=== PATIENT | female | born 2000 | race Caucasian/White ===

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

== ENCOUNTER 2020-11-14 22:34 | Emergency (ER) | payer OTHER ==
[2020-11-15] MEDS ORDERED: ACETAMINOPHEN ORAL SUSP 160 MG/5 ML CUP PO ONE (00:18)
[2020-11-15] MEDS ORDERED: IBUPROFEN ORAL SUSP 100 MG/5 ML CUP PO ONE (00:18)
[2020-11-15 00:24] LABS: Appearance,Urine Cloudy (Clear); Bacteria,Urine Rare /hpf; Bilirubin,Urine Negative (Negative); Blood,Urine Negative (Negative); Color,Urine Light Yellow; Glucose,Urine (UA) Negative (Negative); Ketones,Urine Negative (Negative); Leukocyte Esterase,Urine Moderate (Negative); Nitrite,Urine Negative (Negative); Protein,Urine Negative (Negative); RBC,Urine 1 /hpf (0-5); Specific Gravity,Urine 1.004 (1.001-1.035); Squamous Epithelial Cell,Urine 2 /hpf (0-4); Urobilinogen,Urine <2.0 mg/dL (<2.0); WBC,Urine 14 /hpf (0-5)
--- NOTE | 2020-11-15 00:29 | ED ---
Abdominal Pain HPI - General Chief Complaint: Abdominal Pain Stated Complaint: Abdominal pain Time Seen by Provider: 11/14/20 23:59 Source: patient, RN notes reviewed, old records reviewed Mode of arrival: ambulatory Limitations: no limitations - History of Present Illness Initial Comments: This is a 20-year-old female to the ER for evaluation patient presents today for evaluation of a right-sided abdominal pain right area rib pain intermittent pain for a few days now some radiation to her groin. No fevers no nausea vomiting no diarrhea. No prior history of similar event patient has no medical history takes no medication MD Complaint: abdominal pain, flank pain (Right-sided), other (Pain underneath right rib with intermittent pain throughout right flank) -: days(s), week(s) Location: RLQ, R flank Radiation: R flank Migration to: suprapubic Severity: mild Severity scale (1-10): 2 Quality: cramping, aching Consistency: intermittent Improves With: nothing Worsens With: nothing Associated Symptoms: denies other symptoms Treatments Prior to Arrival: other (none) - Related Data Home Medications Medication Instructions Recorded Confirmed Dicyclomine [Bentyl] 10 mg PO TID PRN 08/15/19 08/16/19 Medroxyprogesterone Acetate 150 mg IM Q90D 08/15/19 08/16/19 [Depo-Provera] Omeprazole [PriLOSEC] 20 mg PO AC-BRKFST 08/15/19 08/15/19 Sertraline [Zoloft] 50 mg PO HS 08/15/19 08/16/19 Previous Rx's Medication Instructions Recorded Nitrofurantoin Monohyd/M-Cryst 100 mg PO Q12HR #14 cap 11/15/20 [Macrobid] Allergies Allergy/AdvReac Type Severity Reaction Status Date / Time No Known Allergies Allergy Verified 11/14/20 23:03 Review of Systems ROS Statement: Those systems with pertinent positive or pertinent negative responses have been documented in the HPI. ROS Other: All systems not noted in ROS Statement are negative. Past Medical History Past Medical History: No Reported History Additional Past Medical History / Comment(s): hernia History of Any Multi-Drug Resistant Organisms: None Reported Past Surgical History: No Surgical Hx Reported Past Psychological History: Anxiety, Depression Smoking Status: Vaper Past Alcohol Use History: None Reported Past Drug Use History: None Reported General Exam Limitations: no limitations General appearance: alert, in no apparent distress Head exam: Present: atraumatic, normocephalic, normal inspection Eye exam: Present: normal appearance, PERRL, EOMI. Absent: scleral icterus, conjunctival injection, periorbital swelling ENT exam: Present: normal exam, mucous membranes moist Neck exam: Present: normal inspection. Absent: tenderness, meningismus, lymphadenopathy Respiratory exam: Present: normal lung sounds bilaterally. Absent: respiratory distress, wheezes, rales, rhonchi, stridor Cardiovascular Exam: Present: regular rate, normal rhythm, normal heart sounds. Absent: systolic murmur, diastolic murmur, rubs, gallop, clicks GI/Abdominal exam: Present: soft, tenderness (areas of generalized abdominal tenderness), normal bowel sounds, other (Right-sided flank pain no CVA tenderness). Absent: distended, guarding, rebound, rigid Extremities exam: Present: normal inspection, full ROM, normal capillary refill. Absent: tenderness, pedal edema, joint swelling, calf tenderness Back exam: Present: normal inspection Neurological exam: Present: alert, oriented X3, CN II-XII intact Psychiatric exam: Present: normal affect, normal mood Skin exam: Present: warm, dry, intact, normal color. Absent: rash Course Vital Signs 11/14/20 11/15/20 23:04 00:42 Temperature 98.8 F 98.2 F Pulse Rate 99 85 Respiratory 16 16 Rate Blood Pressure 125/88 107/68 O2 Sat by Pulse 98 99 Oximetry - Reevaluation(s) Reevaluation #1: 11/15/20 01:59 Medical records reviewed Reevaluation #2: 11/15/20 01:59 Symptoms are improved Medical Decision Making - Medical Decision Making 20 female to the ER for evaluation of right-sided flank pain occasionally abdominal pain. Patient does have ovarian cysts likely and computed tomography scan will admit, pain is not consistent with torsion, CT abdomen and pelvis is a positive for a kidney stone. Patient can be discharged home for oral antibiotics possibly pyelonephritis with UTI - Lab Data Lab Results 11/15/20 11/15/20 Range/Units 00:04 00:04 Urine Color Light Yellow Urine Appearance Cloudy H (Clear) Urine pH 7.0 (5.0-8.0) Ur Specific [place] 1.004 (1.001-1.035) Urine Protein Negative (Negative) Urine Glucose (UA) Negative (Negative) Urine Ketones Negative (Negative) Urine Blood Negative (Negative) Urine Nitrite Negative (Negative) Urine Bilirubin Negative (Negative) Urine Urobilinogen <2.0 (<2.0) mg/dL Ur Leukocyte Esterase Moderate H (Negative) Urine RBC 1 (0-5) /hpf Urine WBC 14 H (0-5) /hpf Ur Squamous Epith Cells 2 (0-4) /hpf Urine Bacteria Rare H (None) /hpf Urine HCG, Qual Not Detected (Not Detectd) - Radiology Data Radiology results: report reviewed (CT head and pelvis does show likely ovarian cyst), image reviewed Disposition Clinical Impression: Abdominal pain, UTI (urinary tract infection), Ovarian cyst Disposition: HOME SELF-CARE Condition: Good Instructions (If sedation given, give patient instructions): Abdominal Pain (ED), Urinary Tract Infection in Women (ED) Prescriptions: Nitrofurantoin Monohyd/M-Cryst [Macrobid] 100 mg PO Q12HR #14 cap Is patient prescribed a controlled substance at d/c from ED?: No Referrals: None,Stated [Primary Care Provider] - 1-2 days
[2020-11-15 00:43] VITALS: PULSE 85
--- NOTE | 2020-11-15 01:04 | CT ---
EXAMINATION TYPE: CT abdomen pelvis wo con DATE OF EXAM: 11/15/2020 COMPARISON: None HISTORY: right side abd pain x1week CT DLP: mGycm Automated exposure control for dose reduction was used. Images obtained from the diaphragm to the floor the pelvis without contrast. Lung bases are clear. There is no pleural effusion. Heart size is normal. There is no pericardial eff usion. Liver spleen stomach pancreas gallbladder appear normal. Gallbladder is somewhat contracted. There is no adrenal mass. Kidneys show normal size and contour. There is no hydronephrosis. Ureters a re not dilated. There is no retroperitoneal adenopathy. Bladder distends smoothly. There is no inguin al hernia. There is no free fluid in the pelvis. There is no evidence of pelvic mass. Appendix is medial and posterior and appears normal. Uterus is anteverted. There is probably a 2.7 cm cyst on the right ovary. Exam limited with lack of c ontrast. Lumbar vertebra have normal alignment. Disc spaces are normal. Posterior elements are intact. Bony pe lvis is intact. Hip joints are intact. IMPRESSION: There is probably a right ovarian cyst. Normal appendix.
[2020-11-15] MEDS ORDERED: NITROFURANTOIN MONOHYD/M-CRYST 100 MG CAP PO STA (01:40)
[2020-11-15 02:42] VITALS: BP 109/70; RESP 14; TEMP 99.2
== END 2020-11-15 02:40 | disposition home or self-care (01) ==
LOC: EC 22:34
DX: N39.0 Urinary tract infection, site not specified (principal); N83.209 Unspecified ovarian cyst, unspecified side; F41.9 Anxiety disorder, unspecified; F32.9 Major depressive disorder, single episode, unspecified; Z79.3 Long term (current) use of hormonal contraceptives; F17.290 Nicotine dependence, other tobacco product, uncomplicated
CPT/HCPCS: 74176; 81001; 81025; 87086; 99284

== ENCOUNTER 2021-05-03 18:45 | Emergency (ER) | payer OTHER ==
[2021-05-03 18:55] VITALS: TEMP 98.5
[2021-05-03] MEDS ORDERED: SODIUM CHLORIDE 0.9% 500 ML 500 ML IV STA (19:08)
--- NOTE | 2021-05-03 19:19 | ED ---
General Adult HPI - General Chief complaint: Vaginal Bleeding Stated complaint: abd pain/female Time Seen by Provider: 05/03/21 18:57 Source: patient Mode of arrival: ambulatory Limitations: no limitations - History of Present Illness Initial comments: 20 year-old female patient presents to the emergency department for evaluation of pelvic pain and vaginal bleeding. Patient states she has been having pain from "ovarian cysts" for the last several days. States that today she started to having spotting and had an intense sharp pain to the right pelvic region. States pain radiated to her back. States the bleeding is dark brown to red and very mild. Denies soaking through a tampon or pad. States she has not had a period in 1.5 years, was initially on Depo Provera injection and now has Nexplanon implant since June. She did have two ovarian cysts diagnosed on ultrasound in October. She denies any fever or chills. Denies any hematuria, dysuria, urinary frequency, urinary urgency. Denies ever being . Patient denies any recent rash, cough, shortness of breath, chest pain, nausea, vomiting, diarrhea, constipation, numbness, tingling, dizziness, weakness, headache, visual changes, or any other complaints. - Related Data Home Medications Medication Instructions Recorded Confirmed Dicyclomine [Bentyl] 10 mg PO TID PRN 08/15/19 08/16/19 Medroxyprogesterone Acetate 150 mg IM Q90D 08/15/19 08/16/19 [Depo-Provera] Omeprazole [PriLOSEC] 20 mg PO AC-BRKFST 08/15/19 08/15/19 Sertraline [Zoloft] 50 mg PO HS 08/15/19 08/16/19 Previous Rx's Medication Instructions Recorded Acetaminophen Oral Susp [Tylenol] 750 mg PO Q4-6H #240 ml 11/15/20 Ibuprofen [Children's Motrin Susp] 500 mg PO Q6HR PRN #240 ml 11/15/20 Nitrofurantoin Monohyd/M-Cryst 100 mg PO Q12HR #14 cap 11/15/20 [Macrobid] Allergies Allergy/AdvReac Type Severity Reaction Status Date / Time No Known Allergies Allergy Verified 05/03/21 18:56 Review of Systems ROS Statement: Those systems with pertinent positive or pertinent negative responses have been documented in the HPI. ROS Other: All systems not noted in ROS Statement are negative. Past Medical History Past Medical History: No Reported History Additional Past Medical History / Comment(s): hernia History of Any Multi-Drug Resistant Organisms: None Reported Past Surgical History: No Surgical Hx Reported Past Psychological History: Anxiety, Depression Smoking Status: Vaper Past Alcohol Use History: None Reported Past Drug Use History: None Reported General Exam Limitations: no limitations General appearance: alert, in no apparent distress, other (This is a well- developed, well-nourished adult female in no acute distress.) ENT exam: Present: normal exam, normal oropharynx, mucous membranes moist Respiratory exam: Present: normal lung sounds bilaterally. Absent: respiratory distress, wheezes, rales, rhonchi, stridor Cardiovascular Exam: Present: regular rate, normal rhythm, normal heart sounds. Absent: systolic murmur, diastolic murmur, rubs, gallop, clicks GI/Abdominal exam: Present: soft, tenderness (Right lower quadrant), normal bowel sounds. Absent: distended, guarding, rebound, rigid Neurological exam: Present: alert, oriented X3, CN II-XII intact Psychiatric exam: Present: normal affect, normal mood Skin exam: Present: warm, dry, intact, normal color. Absent: rash Course Vital Signs 05/03/21 18:53 Temperature 98.5 F Pulse Rate 105 H Respiratory 20 Rate Blood Pressure 135/90 O2 Sat by Pulse 98 Oximetry Medical Decision Making - Medical Decision Making 20-year-old female patient presented for evaluation of pelvic pain and spotting. She does currently have Nexplanon implant. Physical examination did reveal lower abdominal tenderness especially over the right lower quadrant. She is afebrile, vital signs. Labs reviewed and are unremarkable. She had 15 white blood cells in the urine but no symptoms we did send this for culture. She is given pain medication here. Instructed to follow-up with her customer success specialist for further evaluation as soon as possible. Return parameters were discussed in detail. She verbalizes understanding and agrees with this plan. My attending is Dr. Gilliam. - Lab Data Result diagrams: 05/03/21 19:30 05/03/21 19:30 Lab Results 05/03/21 05/03/21 05/03/21 Range/Units 19:30 19:30 19:30 WBC 6.9 (4.0-11.0) k/uL RBC 4.58 (3.80-5.40) m/uL Hgb 14.5 (11.4-16.0) gm/dL Hct 43.1 (34.0-46.0) % MCV 94.1 (80.0-100.0) fL MCH 31.6 (25.0-35.0) pg MCHC 33.6 (31.0-37.0) g/dL RDW 13.2 (11.5-15.5) % Plt Count 342 (150-450) k/uL MPV 7.3 Neutrophils % 59 % Lymphocytes % 30 % Monocytes % 7 % Eosinophils % 0 % Basophils % 1 % Neutrophils # 4.1 (1.3-7.7) k/uL Lymphocytes # 2.1 (1.0-4.8) k/uL Monocytes # 0.5 (0-1.0) k/uL Eosinophils # 0.0 (0-0.7) k/uL Basophils # 0.0 (0-0.2) k/uL Sodium 139 (137-145) mmol/L Potassium 3.9 (3.5-5.1) mmol/L Chloride 105 (98-107) mmol/L Carbon Dioxide 24 (22-30) mmol/L Anion Gap 10 mmol/L BUN 9 (7-17) mg/dL Creatinine 0.66 (0.52-1.04) mg/dL Est GFR (CKD-EPI)AfAm >90 (>60 ml/min/1.73 sqM) Est GFR (CKD-EPI)NonAf >90 (>60 ml/min/1.73 sqM) Glucose 87 (74-99) mg/dL Plasma Lactic Acid Jv (0.7-2.0) mmol/L Calcium 9.9 (8.4-10.2) mg/dL Total Bilirubin 1.0 (0.2-1.3) mg/dL AST 32 (14-36) U/L ALT 30 (4-34) U/L Alkaline Phosphatase 77 (38-126) U/L Total Protein 8.1 (6.3-8.2) g/dL Albumin 4.5 (3.5-5.0) g/dL Lipase 44 (23-300) U/L Urine Color Light Yellow Urine Appearance Cloudy H (Clear) Urine pH 7.5 (5.0-8.0) Ur Specific [place] 1.013 (1.001-1.035) Urine Protein Negative (Negative) Urine Glucose (UA) Negative (Negative) Urine Ketones Negative (Negative) Urine Blood Moderate H (Negative) Urine Nitrite Negative (Negative) Urine Bilirubin Negative (Negative) Urine Urobilinogen <2.0 (<2.0) mg/dL Ur Leukocyte Esterase Moderate H (Negative) Urine RBC 1 (0-5) /hpf Urine WBC 15 H (0-5) /hpf Ur Squamous Epith Cells 2 (0-4) /hpf Urine Bacteria Rare H (None) /hpf Urine HCG, Qual (Not Detectd) 05/03/21 05/03/21 Range/Units 19:30 19:30 WBC (4.0-11.0) k/uL RBC (3.80-5.40) m/uL Hgb (11.4-16.0) gm/dL Hct (34.0-46.0) % MCV (80.0-100.0) fL MCH (25.0-35.0) pg MCHC (31.0-37.0) g/dL RDW (11.5-15.5) % Plt Count (150-450) k/uL MPV Neutrophils % % Lymphocytes % % Monocytes % % Eosinophils % % Basophils % % Neutrophils # (1.3-7.7) k/uL Lymphocytes # (1.0-4.8) k/uL Monocytes # (0-1.0) k/uL Eosinophils # (0-0.7) k/uL Basophils # (0-0.2) k/uL Sodium (137-145) mmol/L Potassium (3.5-5.1) mmol/L Chloride (98-107) mmol/L Carbon Dioxide (22-30) mmol/L Anion Gap mmol/L BUN (7-17) mg/dL Creatinine (0.52-1.04) mg/dL Est GFR (CKD-EPI)AfAm (>60 ml/min/1.73 sqM) Est GFR (CKD-EPI)NonAf (>60 ml/min/1.73 sqM) Glucose (74-99) mg/dL Plasma Lactic Acid Jv 1.2 (0.7-2.0) mmol/L Calcium (8.4-10.2) mg/dL Total Bilirubin (0.2-1.3) mg/dL AST (14-36) U/L ALT (4-34) U/L Alkaline Phosphatase (38-126) U/L Total Protein (6.3-8.2) g/dL Albumin (3.5-5.0) g/dL Lipase (23-300) U/L Urine Color Urine Appearance (Clear) Urine pH (5.0-8.0) Ur Specific [place] (1.001-1.035) Urine Protein (Negative) Urine Glucose (UA) (Negative) Urine Ketones (Negative) Urine Blood (Negative) Urine Nitrite (Negative) Urine Bilirubin (Negative) Urine Urobilinogen (<2.0) mg/dL Ur Leukocyte Esterase (Negative) Urine RBC (0-5) /hpf Urine WBC (0-5) /hpf Ur Squamous Epith Cells (0-4) /hpf Urine Bacteria (None) /hpf Urine HCG, Qual Not Detected (Not Detectd) - Radiology Data Radiology results: report reviewed, image reviewed Transvaginal ultrasound was obtained. Report was reviewed in its entirety. Impression by Dr. Rodriguez shows no evidence for acute pelvic process. Appropriate arterial and venous flow to the ovaries. Disposition Clinical Impression: Vaginal bleeding, Pelvic pain Disposition: HOME SELF-CARE Condition: Good Instructions (If sedation given, give patient instructions): Pelvic Pain in Women (ED) Additional Instructions: Follow-up with your customer success specialist for further evaluation. Follow-up through primary care physician for recheck in 1-2 days. Return for any new, worsening, or concerning symptoms. Is patient prescribed a controlled substance at d/c from ED?: No Referrals: Abhijeet Mcclendon III, MD [Primary Care Provider] - 1-2 days Time of Disposition: 21:28
[2021-05-03 20:00] LABS: Appearance,Urine Cloudy (Clear); Bacteria,Urine Rare /hpf; Bilirubin,Urine Negative (Negative); Blood,Urine Moderate (Negative); Color,Urine Light Yellow; Glucose,Urine (UA) Negative (Negative); Ketones,Urine Negative (Negative); Leukocyte Esterase,Urine Moderate (Negative); Nitrite,Urine Negative (Negative); PH, Urine 7.5 (5.0-8.0); Protein,Urine Negative (Negative); RBC,Urine 1 /hpf (0-5); Specific Gravity,Urine 1.013 (1.001-1.035); Squamous Epithelial Cell,Urine 2 /hpf (0-4); Urobilinogen,Urine <2.0 mg/dL (<2.0); WBC,Urine 15 /hpf (0-5)
[2021-05-03 20:01] LABS: ALT 30 U/L (4-34); AST 32 U/L (14-36); African American GFR (CKD) >90 (>60 ml/min/1.73 sqM); Albumin 4.5 g/dL (3.5-5.0); Alkaline Phosphatase 77 U/L (38-126); Anion Gap 10 mmol/L; Blood Urea Nitrogen 9 mg/dL (7-17); Calcium 9.9 mg/dL (8.4-10.2); Carbon Dioxide 24 mmol/L (22-30); Chloride 105 mmol/L (98-107); Glucose 87 mg/dL (74-99); Lipase 44 U/L (23-300); Non-African American GFR(CKD) >90 (>60 ml/min/1.73 sqM); Sodium 139 mmol/L (137-145); Total Protein 8.1 g/dL (6.3-8.2)
[2021-05-03 20:16] LABS: Potassium 3.9 mmol/L (3.5-5.1)
--- NOTE | 2021-05-03 20:47 | US ---
EXAMINATION TYPE: US transvaginal DATE OF EXAM: 05/03/2021 COMPARISON: CT 2020, US 2019 CLINICAL HISTORY: Pelvic pain; spotting; nexplanon. Intermittent pelvic and back pain x couple months , 0, abnormal cycles prior to control, patient has nexplanon TECHNIQUE: Transvaginal ER exam Date of LMP: 1 year ago EXAM MEASUREMENTS: Uterus: 6.5 x 2.6 x 4.5 cm Endometrial Stripe: 0.3 cm Right Ovary: 3.6 x 1.7 x 2.1 cm Left Ovary: 2.7 x 2.1 x 1.8 cm 1. Uterus: anteverted 2. Endometrium: wnl 3. Right Ovary: multiple follicles 4. Left Ovary: multiple follicles Spectral, color and waveform doppler imaging shows good arterial and venous flow within the ovaries ; there is no evidence for ovarian torsion. 5. Bilateral Adnexa: wnl 6. Posterior cul-de-sac: small amount of free fluid IMPRESSION: No evidence for acute pelvic process of appropriate with Arterial and venous flow to the ovaries.
[2021-05-03 21:02] LABS: Basophils % (A) 1 %; Eosinophils % (A) 0 %; HCT 43.1 % (34.0-46.0); HGB 14.5 gm/dL (11.4-16.0); Lymphocytes # (A) 2.1 k/uL (1.0-4.8); Lymphocytes % (A) 30 %; MCH 31.6 pg (25.0-35.0); MCHC 33.6 g/dL (31.0-37.0); MCV 94.1 fL (80.0-100.0); Mean Platelet Volume 7.3; Monocytes # (A) 0.5 k/uL (0-1.0); Monocytes % (A) 7 %; Neutrophils # (A) 4.1 k/uL (1.3-7.7); Neutrophils % (A) 59 %; Platelet Count 342 k/uL (150-450); RBC 4.58 m/uL (3.80-5.40); RDW 13.2 % (11.5-15.5); WBC 6.9 k/uL (4.0-11.0)
[2021-05-03] MEDS ORDERED: KETOROLAC 15 MG/ML 1 ML VIAL IVP STA (21:26)
[2021-05-03] MEDS ORDERED: IBUPROFEN ORAL SUSP 100 MG/5 ML CUP PO ONE (21:26)
[2021-05-03 21:37] VITALS: BP 127/74; PULSE 94; RESP 16
== END 2021-05-03 21:38 | disposition home or self-care (01) ==
LOC: EC 18:45
DX: N93.9 Abnormal uterine and vaginal bleeding, unspecified (principal); R10.2 Pelvic and perineal pain; F32.A Depression, unspecified; F41.9 Anxiety disorder, unspecified; F17.290 Nicotine dependence, other tobacco product, uncomplicated; Z79.1 Long term (current) use of non-steroidal anti-inflammatories (NSAID); Z79.899 Other long term (current) drug therapy
CPT/HCPCS: 36415; 80053; 83605; 83690; 85025; 81001; 81025; 87086; 93975; 76830; 99284; 96374; J1885

== ENCOUNTER 2021-06-18 06:20 | Day surgery (SDC) | payer OTHER ==
[2021-06-13 15:34] VITALS: BMI 18.8
--- NOTE | 2021-06-17 19:46 | P.HPOB ---
History of Present Illness H&P Date: 06/17/21 Chief Complaint: Pelvic pain This is a 20 y.o. female, 0, who presents for laparoscopy, possible drainage of ovarian cysts, possible lysis of adhesions, possible ablation of endometriosis, and possible laparotomy due to pelvic pain. She complains of a 7 month history of gradually increasing right lower quadrant pain that is sharp, frequent, intermittent, with variable intensity. Each episode lasts about 10 minutes, but the longest she has gone without the pain is 3 days. She states the pain is in her right mid-abdomen and is associated with nausea, anorexia and occasional vomiting. Her symptoms are somewhat relieved with heat and laying down. She had a pelvic ultrasound on 05/03/2021 that showed uterus measuring 6.5 x 2.6 x 4.5 cm with endometrium 0.3 cm. There were multiple small simple cysts on both ovaries. She had a CT scan in 10/2020 that showed a normal appendix and a probable right ovarian cyst measuring 2.7 cm. OB Hx: G0. Qc Tech Hx: Sexually active with partner of 2 years. No history of STDs. Uses Nexplanon for control-placed 07/23/2020. History of irregular, painful period prior to BCPs. Was on Depo-Provera for over a year prior to Nexplanon. Currently not having menses on Nexplanon. Social Hx: Single. 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 Review of Systems Constitutional: Denies chills, Denies fever Eyes: denies blurred vision, denies pain Ears, nose, mouth and throat: Denies headache, Denies sore throat Cardiovascular: Denies chest pain, Denies shortness of breath Respiratory: Denies cough Gastrointestinal: Reports abdominal pain (RLQ), Reports nausea, Reports vomiting (occasional), Denies diarrhea Genitourinary: Reports pelvic pain Menstruation: Reports amenorrhea on BC Musculoskeletal: Denies myalgias Integumentary: Denies pruritus, Denies rash Neurological: Denies numbness, Denies weakness Psychiatric: Denies anxiety, Denies depression Endocrine: Denies fatigue, Denies weight change Past Medical History Additional Past Medical History / Comment(s): INCREASING PELVIC PAIN WITH BACK PAIN AND N/V OVER PAST 7 MONTHS. SMALL HIATAL HERNIA History of Any Multi-Drug Resistant Organisms: None Reported Past Surgical History: No Surgical Hx Reported Additional Past Surgical History / Comment(s): EGD Past Anesthesia/Blood Transfusion Reactions: No Reported Reaction Past Psychological History: No Psychological Hx Reported Smoking Status: Vaper Past Alcohol Use History: None Reported Past Drug Use History: None Reported - Past Family History Mother Family Medical History: No Reported History Father Family Medical History: Cancer (Skin), Hypertension Medications and Allergies Home Medications Medication Instructions Recorded Confirmed Type Etonogestrel [Nexplanon] 1 implant SQ [id number] 06/13/21 06/13/21 History Ibuprofen [Advil] 200 mg PO Q8HR PRN 06/17/21 06/17/21 History Allergies Allergy/AdvReac Type Severity Reaction Status Date / Time No Known Allergies Allergy Verified 06/13/21 15:24 Exam Osteopathic Statement: *. No significant issues noted on an osteopathic structural exam other than those noted in the History and Physical/Consult. HEENT: within normal limits Heart: regular rate and rhythm Lungs: clear to auscultation bilaterally Abdomen: soft, mild tenderness in right mid-lower quadrant, no guarding or rebound, no masses Pelvic: uterus, small, anteverted, non-tender, no adnexal masses or tenderness Extremities: negative Gisella's Assessment and Plan (1) Pelvic pain Current Visit: No Status: Acute Code(s): R10.2 - PELVIC AND PERINEAL PAIN SNOMED Code(s): 93251455 Plan: Proceed with diagnostic laparoscopy, possible drainage of ovarian cyst, possible lysis of adhesions, possible ablation of endometriosis, possible laparotomy. I have discussed the risks, benefits, and alternative therapies for the above- mentioned procedure and for both sedation/anesthesia as well as necessary blood products administration, if indicated, as they pertain to this patient. The patient has indicated her understanding and acceptance of the risks and procedures discussed.
[~2021-06-18 06:20] MED LIST changes: +DEXAMETHASONE SOD PHOSPHATE 4 MG/ML 1 ML VIAL IV ONE; -LACTATED RINGERS 1,000 ML IV ONE; +LIDOCAINE 1% (10MG/ML) FOR IV START INTRADERMA PRN; +ONDANSETRON 4 MG/2 ML VIAL IVP ONE; -PROPOFOL 10 MG/ML 20 ML VIAL IV ONE; +Pre Op ABX Message 1 EACH MISC MISCELLANE ONE
[2021-06-18] MEDS ORDERED: HYDROmorphone 0.5 MG/0.5 ML SYRINGE IVP PRN (07:00)
[2021-06-18] MEDS ORDERED: MIDAZOLAM 2 MG/2 ML VIAL ONE (07:23)
[2021-06-18] MEDS ORDERED: PHENYLEPHRINE-0.9% NACL SYG 1,000 MCG/10 ML SYRINGE ONE (07:23)
[2021-06-18] MEDS ORDERED: LIDOCAINE 1% INJ 10MG/ML (20 ML MDV) ONE (07:23)
[2021-06-18] MEDS ORDERED: NEOSTIGMINE 1 MG/ML 10 ML VIAL ONE (07:23)
[2021-06-18] MEDS ORDERED: GLYCOPYRROLATE 0.2 MG/ML 2 ML VIAL ONE (07:23)
[2021-06-18] MEDS ORDERED: ROCURONIUM 10 MG/ML (5 ML VIAL) IV ONE (07:23)
[2021-06-18] MEDS ORDERED: PROPOFOL 10 MG/ML 20 ML VIAL IV ONE (07:23)
[2021-06-18] MEDS ORDERED: fentaNYL (PF) 50 MCG/ML 2 ML AMP ONE (07:23)
[2021-06-18] MEDS ORDERED: BUPIVACAINE (PF) 0.25% 30 ML VIAL SQ ONE ×2 (07:59→08:13)
--- NOTE | 2021-06-18 08:18 | P.OP ---
Date of Procedure: 06/18/21 Preoperative Diagnosis: Pelvic pain Postoperative Diagnosis: Same plus normal pelvis Procedure(s) Performed: Diagnostic laparoscopy Anesthesia: JUANA Surgeon: Tania Torres Estimated Blood Loss (ml): 5 Pathology: none sent Condition: stable Disposition: same day Indications for Procedure: This is a 20 y.o. female, 0, who presents for laparoscopy, possible drainage of ovarian cysts, possible lysis of adhesions, possible ablation of endometriosis, and possible laparotomy due to pelvic pain. She complains of a 7 month history of gradually increasing right lower quadrant pain that is sharp, frequent, intermittent, with variable intensity. Each episode lasts about 10 m inutes, but the longest she has gone without the pain is 3 days. She states the pain is in her right mid-abdomen and is associated with nausea, anorexia and occasional vomiting. Her symptoms are somewhat relieved with heat and laying down. She had a pelvic ultrasound on 05/03/2021 that showed uterus measuring 6.5 x 2.6 x 4.5 cm with endometrium 0.3 cm. There were multiple small simple cysts on both ovaries. She had a CT scan in 10/2020 that showed a normal appendix and a probable right ovarian cyst measuring 2.7 cm. Operative Findings: Uterus is anteverted with no adnexal masses palpated. Upon laparoscopy, normal tubes and ovaries are noted bilaterally. Normal contour to the uterus is noted. Appendix is visualized and appears normal. No adhesions were noted. No evidence of endometriosis was noted. Gallbladder appears normal. Description of Procedure: The patient is taken to the operating room she is placed in the dorsal lithotomy position. She is prepped and draped in the normal sterile fashion. Her bladder is drained with a catheter. Examination is performed under anesthesia. Uterus is found to be anteverted, small, with no adnexal masses palpated. Next a bivalve speculum was placed in the patient's vagina. The anterior lip of this cervix is grasped with a single-tooth tenaculum. Next the cervix is gently dilated with Perez dilators until a sound could be placed. Uterus is sounded to 8 cm. The kroner uterine manipulator is then inserted through the cervix and the balloon is inflated. Single-tooth tenaculum is removed speculum was removed and gloves are changed. Attention is turned to the abdomen. A small stab incision is made in the infraumbilical fold. A 5 mm disposable bladeless trochars inserted into the peritoneal cavity under direct visualization. Once inside, pneumoperitoneum was achieved with CO2 gas. Next a small stab incision is made suprapubically and a 5 mm disposable bladeless trocar is inserted under direct visualization. A probe was then inserted and pelvic contents were inspected. The above noted findings are made and pictures are taken. Next the inferior trocar is removed under direct visualization. No bleeding is noted. The pneumoperitoneum is released. The upper trocar is removed. The skin incisions are then closed with 4-0 Vicryl suture in a subcuticular fashion. Interrupted stitches are placed on both incision sites for hemostasis. Next incision sites are injected with quarter percent Marcaine. Approximately 6 mL are used. Next the kroner uterine manipulator is deflated and removed. Elective bleeding is noted. All sponge and needle counts are correct. The patient is then taken to recovery room in stable condition.
[2021-06-18 08:37] VITALS: TEMP 97.6
[2021-06-18] MEDS ORDERED: LACTATED RINGERS 1,000 ML IV ONE ×2 (08:55)
[2021-06-18 09:49] VITALS: RESP 18
[2021-06-18 09:54] VITALS: BP 108/70; PULSE 67
== END 2021-06-18 10:23 | disposition home or self-care (01) ==
LOC: OR 06:20
PROVIDERS: ATTEND Obstetrics & Gynecology
DX: R10.2 Pelvic and perineal pain (principal); N83.292 Other ovarian cyst, left side; N83.291 Other ovarian cyst, right side; F17.290 Nicotine dependence, other tobacco product, uncomplicated; K44.9 Diaphragmatic hernia without obstruction or gangrene; Z79.3 Long term (current) use of hormonal contraceptives; Z82.49 Family history of ischemic heart disease and other diseases of the circulatory system; Z80.8 Family history of malignant neoplasm of other organs or systems
CPT/HCPCS: 81025; 49320; J2250; J1100; J2710; J2405; J2001; J3010; J2370; J2704; J1170